=== PATIENT | female | born 1950 | race Caucasian/White ===

== ENCOUNTER 2017-11-30 10:29 | Emergency (ER) | payer OTHER ==
[~2017-11-30] VITALS: Ht 154.9 cm; Wt 60.6 kg
[2017-11-30 10:52] VITALS: TEMP 37; Ht 154.9 cm; Wt 60.6 kg
[2017-11-30] MEDS ORDERED: AMLO-110 PO (11:11)
[2017-11-30] MEDS ORDERED: PRVC/40 PO (11:11)
[2017-11-30] MEDS ORDERED: ONDANSETRON INJ 2 MG/ML 2 ML VIAL IV STA (11:31)
[2017-11-30] MEDS ORDERED: SODIUM CHLORIDE 0.9% 1000ML 1,000 ML IV STA (11:31)
[2017-11-30] MEDS ORDERED: KETOROLAC TROMETHAMINE 30 MG/ML VIAL IV STA (11:31)
--- NOTE | 2017-11-30 11:36 | EMERGENCY ROOM VISIT NOTE ---
History Report prepared by Stevenson: Hung Mireles Under the Supervision of: Dr. Alberto Fofana M.D. First contact with patient: 11:18 Chief Complaint: NAUSEA Stated Complaint: NAUSEA, ACUTE STOMACH PAIN, HEADACHE Nursing Triage Summary: Per pts : Cough and headache since Sunday, then abdomen pain and N/V/D started. Went to [facility] on Sunday to see PCP, was given medication for migraine and nausea. Now migraine resolved, nausea seemed to be under control with medication, but abdominal pain persists. Called PCP again and referred here for further evaluation. Per pt: "I have headache again, I feel dizzy, I feel dehydrated, I feel like a mess, and my abdomen hurts 04/21". History of Present Illness The patient is a 67 year old female who presents to the Emergency Room with complaints of constant epigastric abdominal pain that the onset three days prior to arrival. Her abdominal pain is in localized in the upper epigastric region. The patient state that her symptoms onset three days ago with a cough, vomiting episodes and a migraine. She developed diarrhea on Sunday, and went to [facility] and was given a shot for pain and a nausea medications. The vomiting and diarrhea is resolved at this time. She is still experiencing the abdominal pain and a headache. She denies any chest pain or shortness of breath. She has a history of hypertension and hyperlipidemia. Source of History: patient, spouse/significant other Onset: Three days MACHINERY ERECTOR Position: abdomen (Upper) Timing: constant Associated Symptoms: + headache, + cough, + vomiting Review of Systems See HPI for pertinent positives & negatives. A total of 10 systems reviewed and were otherwise negative. Past Medical & Surgical Medical Problems: (1) HLD (hyperlipidemia) (2) HTN (hypertension) HLD (hyperlipidemia) HTN (hypertension) Old medical records were reviewed. Nurse's notes were reviewed and I agree with. Family History Diabetes mellitus Hypertension Social History Smoking Status: Never Smoker Alcohol Use: none Drug Use: none Marital Status: Housing Status: lives with significant other Occupation Status: unemployed Current/Historical Medications Scheduled Amlodipine (Norvasc), 1 TAB PO DAILY Pravastatin Sod (Pravastatin Sodium), 40 MG PO DAILY Allergies Coded Allergies: No Known Allergies (Unverified , 11/30/17) Physical Exam Vital Signs Date Time Temp Pulse Resp B/P (MAP) Pulse Ox O2 Delivery O2 Flow Rate FiO2 11/30/17 14:53 61 22 148/68 95 11/30/17 12:35 62 18 125/72 97 Room Air 11/30/17 10:52 37.0 83 18 120/75 97 Room Air Physical Exam General: Mildly-ill appearing middle age female in no acute distress. HEENT: Normal cephalic atraumatic. Pupils are equal round and reactive to light. Extraocular movements are intact. Oropharynx is pink with moist mucous membranes. No swelling of the mouth lips or tongue. Neck: Supple with a midline trachea. No meningeal signs or stiffness, no JVD or bruits. No Stridor. Chest: Chest is TTP in anterior chest. Clear to auscultation bilaterally. No wheezes or rhonchi. No increased work of breathing. Heart: regular rate and rhythm. Abdomen: Soft, with TTP in epigastric region, no lower abdominal pain, nondistended without rebound guarding or rigidity. Extremities: No cyanosis clubbing or edema. No calf tenderness or assymetry Spine/Back. Non tender to palpation. No CVA tenderness Skin: Good turgor without rashes. Neurologic exam: Cranial nerves two through 12 are intact. Motor and sensation are intact and symmetrical throughout. Medical Decision & Procedures ER Provider Diagnostic Interpretation: Radiology results as stated below per my review and radiologist interpretation: ABD/PELVIS IV CONTRAST ONLY CT DOSE: 294.35 mGy.cm HISTORY: Pain eval for infection and obst TECHNIQUE: Multiaxial CT images of the abdomen and pelvis were performed following the use of intravenous contrast. A dose lowering technique was utilized adhering to the principles of ALARA. COMPARISON STUDY: None. FINDINGS: Lung bases are clear. Liver spleen and pancreas appear unremarkable. There are several small hypodensities in her nodularity within the liver suggesting small cysts. Gallbladder is negative for distention. There is a small cyst upper pole right kidney. Kidneys otherwise enhance uniformly and are negative for hydronephrosis. The bowel pattern overall is considered nonobstructive. Pancreas is uniform.. Bowel pattern is nonobstructive. Negative appendix although it is seen only in part. IMPRESSION: No acute process of the abdomen or pelvis. Several small hepatic as well as renal cysts. Nonobstructive bowel pattern. The above report was generated using voice recognition software. It may contain grammatical, syntax or spelling errors. Electronically signed by: Ton Elliott M.D. 11/30/2017 1:41 PM Dictated Date/Time: 11/30/2017 1:21 PM CHEST ONE VIEW PORTABLE CLINICAL HISTORY: CHEST PAIN pain COMPARISON STUDY: No previous studies for comparison. FINDINGS: The bones soft tissues and hemidiaphragms are normal. The cardiomediastinal silhouette is normal. The lungs are clear. The pulmonary vasculature is normal. IMPRESSION: Negative chest. The above report was generated using voice recognition software. It may contain grammatical, syntax or spelling errors. Electronically signed by: Ton Elliott M.D. 11/30/2017 12:18 PM Dictated Date/Time: 11/30/2017 12:18 PM Laboratory Results 11/30/17 11:25 Red Blood Count 5.46, Mean Corpuscular Volume 86.4, Mean Corpuscular Hemoglobin 29.5, Mean Corpuscular Hemoglobin Concent 34.1, Mean Platelet Volume 9.9, Neutrophils (%) (Auto) 46.7, Lymphocytes (%) (Auto) 35.0, Monocytes (%) (Auto) 17.7, Eosinophils (%) (Auto) 0.2, Basophils (%) (Auto) 0.2, Neutrophils # (Auto ) 2.73, Lymphocytes # (Auto) 2.04, Monocytes # (Auto) 1.03, Eosinophils # (Auto ) 0.01, Basophils # (Auto) 0.01 11/30/17 11:25 Test 11/30/17 11:25 White Blood Count 5.83 K/uL (4.8-10.8) Red Blood Count 5.46 M/uL (4.2-5.4) Hemoglobin 16.1 g/dL (12.0-16.0) Hematocrit 47.2 % (37-47) Mean Corpuscular Volume 86.4 fL (80-100) Mean Corpuscular Hemoglobin 29.5 pg (25-34) Mean Corpuscular Hemoglobin Concent 34.1 g/dl (32-36) Platelet Count 195 K/uL (130-400) Mean Platelet Volume 9.9 fL (7.4-10.4) Neutrophils (%) (Auto) 46.7 % Lymphocytes (%) (Auto) 35.0 % Monocytes (%) (Auto) 17.7 % Eosinophils (%) (Auto) 0.2 % Basophils (%) (Auto) 0.2 % Neutrophils # (Auto) 2.73 K/uL (1.4-6.5) Lymphocytes # (Auto) 2.04 K/uL (1.2-3.4) Monocytes # (Auto) 1.03 K/uL (0.11-0.59) Eosinophils # (Auto) 0.01 K/uL (0-0.5) Basophils # (Auto) 0.01 K/uL (0-0.2) RDW Standard Deviation 42.5 fL (36.4-46.3) RDW Coefficient of Variation 13.5 % (11.5-14.5) Immature Granulocyte % (Auto) 0.2 % Immature Granulocyte # (Auto) 0.01 K/uL (0.00-0.02) Anion Gap 7.0 mmol/L (3-11) Est Creatinine Clear Calc Drug Dose 50.4 ml/min Estimated GFR () 77.7 Estimated GFR (Non- 67.0 BUN/Creatinine Ratio 15.6 (10-20) Calcium Level 9.2 mg/dl (8.5-10.1) Total Bilirubin 0.3 mg/dl (0.2-1) Direct Bilirubin < 0.1 mg/dl (0-0.2) Aspartate Amino Transf (AST/SGOT) 33 U/L (15-37) Alanine Aminotransferase (ALT/SGPT) 29 U/L (12-78) Alkaline Phosphatase 97 U/L (45-117) Troponin I < 0.015 ng/ml (0-0.045) Total Protein 8.4 gm/dl (6.4-8.2) Albumin 3.9 gm/dl (3.4-5.0) Lipase 140 U/L (73-393) Laboratory studies as stated above per my review. Medications Administered Medications (Trade) Dose Ordered Sig/Ronda Route Start Time Stop Time Status Last Admin Dose Admin Sodium Chloride 1,000 ml @ 999 mls/hr Q1H1M STAT IV 11/30/17 11:31 11/30/17 12:31 DC 11/30/17 11:44 999 MLS/HR Ondansetron HCl (Zofran Inj) 4 mg NOW STAT IV 11/30/17 11:31 11/30/17 11:33 DC 11/30/17 11:44 4 MG Ketorolac Tromethamine (Toradol Inj) 30 mg NOW STAT IV 11/30/17 11:31 11/30/17 11:33 DC 11/30/17 11:44 30 MG Morphine Sulfate (MoRPHine SULFATE INJ) 2 mg NOW STAT IV 11/30/17 12:46 11/30/17 12:48 DC 11/30/17 12:57 2 MG Potassium Chloride (Klor-Con M10) 40 meq NOW STAT PO 11/30/17 14:26 11/30/17 14:28 DC 11/30/17 14:50 40 MEQ ECG Indication: nausea Rate (beats per minute): 65 Rhythm: normal sinus Findings: no acute ischemic change, no ectopy, other (normal intervals) Comparison ECG Date: no prior available Change: Patient's electrocardiogram per my interpretation. ED Course 1122: Past medical records reviewed. The patient was evaluated in room C2, and a complete history and physical examination were performed. 1131: Ordered Toradol 03 mg IV, Zofran 4 mg IV, Sodium Chloride 1000 mL @ 999 mL /hr IV. 1246: Ordered Morphine Sulfate 2 mg IV. 1246: I checked on the patient at this time. She is feeling better. I discussed the option of a CT scan and she is agreeable. 1426: Ordered Potassium Chloride 40 meq PO. 1439: Upon reevaluation, the patient is feeing better. I discussed the results and treatment plan with her. She verbalized agreement of the treatment plan. The patient was discharged home. Medical Decision Differential Diagnosis includes; viral illness, dehydration, infection, cardiac disease, pancreatitis, electrolyte or metabolic abnormality. This patient comes in as described above. She has not felt well for several days . she had a migraine which is now better. She can have nausea and epigastric abdominal pain. She is afebrile. She has no meningeal signs or toxicity. Abdomen is moderately tender most in epigastric area. she's also reproducibly tender and chest. IV access established was hydrated with IV normal saline. She was given IV Zofran and IV Toradol. she is feeling better but still continued pain and was given morphine 2 mg IV. She had multiple blood testing. She had no acute electrolyte or metabolic abnormalities with exception of mildly low potassium. He was given potassium 40 mEq here as well as a recommendation to take increase her potassium at home She has no significant anemia. She has no elevation of her white count. She has nothing to suggest acute coronary syndrome or arrhythmia or pneumonia. A CAT scan of the abdomen was obtained and is unremarkable. She has nothing to suggest acute cardiac disease/event. She is feeling much better and would like to go home. She is going to use her Zofran that she has and for stomach upset. She can also use [id number] Zantac and/or Maalox. She is return if worsening symptoms, any new problems or concerns. She was happy with plan discharge home. She should follow-up with her regular doctor Sunday for recheck or return to ER over the weekend if symptoms worsen Blood Pressure Screening Patient's blood pressure: Normal blood pressure Impression Primary Impression: Vomiting Additional Impressions: Hypokalemia Epigastric abdominal pain Scribe Attestation The scribe's documentation has been prepared under my direction and personally reviewed by me in its entirety. I confirm that the note above accurately reflects all work, treatment, procedures, and medical decision making performed by me. Departure Information Dispostion Home / Self-Care Referrals No Doctor, Assigned (PCP) Forms HOME CARE DOCUMENTATION FORM, IMPORTANT VISIT INFORMATION Patient Instructions My [facility] Additional Instructions Rest. Drink plenty of fluids Increase your dietary potassium by eating a few extra bananas Continue to use your ondansetron if needed for nausea For stomach acid or discomfort may use [id number] Maalox and/or Zantac( ranitidine) Return if: Worsening of symptoms, fever or chills, not tolerating fluids, increasing pain, any new problems or concerns Follow-up with your doctor Sunday for recheck or return to ER over the weekend if symptoms worsen Problem Qualifiers
[2017-11-30 11:49] LABS: BASO % 0.2 %; BASO ABS # 0.01 K/uL (0-0.2); EOS % 0.2 %; EOS ABS # 0.01 K/uL (0-0.5); HEMATOCRIT 47.2 % (37-47); HEMOGLOBIN 16.1 g/dL (12.0-16.0); IG# 0.01 K/uL (0.00-0.02); LYMPH ABS # 2.04 K/uL (1.2-3.4); MEAN CELL VOLUME 86.4 fL (80-100); MEAN CORPUSCULAR HEMOGLOBIN 29.5 pg (25-34); MEAN CORPUSCULAR HGB CONC 34.1 g/dl (32-36); MEAN PLATELET VOLUME 9.9 fL (7.4-10.4); MONO % 17.7 %; MONO ABS # 1.03 K/uL (0.11-0.59); NEUT % 46.7 %; NEUT ABS # 2.73 K/uL (1.4-6.5); PLATELET COUNT 195 K/uL (130-400); RED CELL DISTRIBUTION WIDTH CV 13.5 % (11.5-14.5); RED CELL DISTRIBUTION WIDTH SD 42.5 fL (36.4-46.3); WHITE BLOOD COUNT 5.83 K/uL (4.8-10.8)
[2017-11-30 12:06] LABS: ALBUMIN 3.9 gm/dl (3.4-5.0); ALT/SGPT 29 U/L (12-78); AST/SGOT 33 U/L (15-37); BLOOD UREA NITROGEN 14 mg/dl (7-18); CALCIUM 9.2 mg/dl (8.5-10.1); CARBON DIOXIDE 30 mmol/L (21-32); CREATININE 0.88 mg/dl (0.60-1.20); GLUCOSE 90 mg/dl (70-99); LIPASE 140 U/L (73-393); SODIUM 135 mmol/L (136-145)
[2017-11-30 12:09] LABS: ALKALINE PHOSPHATASE 97 U/L (45-117); TOTAL PROTEIN 8.4 gm/dl (6.4-8.2)
--- NOTE | 2017-11-30 12:19 | DIAGNOSTIC IMAGING REPORT ---
CHEST ONE VIEW PORTABLE CLINICAL HISTORY: CHEST PAIN pain COMPARISON STUDY: No previous studies for comparison. FINDINGS: The bones soft tissues and hemidiaphragms are normal. The cardiomediastinal silhouette is normal. The lungs are clear. The pulmonary vasculature is normal. IMPRESSION: Negative chest. The above report was generated using voice recognition software. It may contain grammatical, syntax or spelling errors. Electronically signed by: Ton Elliott M.D. 11/30/2017 12:18 PM Dictated Date/Time: 11/30/2017 12:18 PM
[2017-11-30] MEDS ORDERED: MoRPHine SULFATE 2 MG/ML CARP IV STA (12:46)
[2017-11-30] MEDS ORDERED: OPTIRAY 320 IV PRN (13:00)
--- NOTE | 2017-11-30 13:42 | DIAGNOSTIC IMAGING REPORT ---
ABD/PELVIS IV CONTRAST ONLY CT DOSE: 294.35 mGy.cm HISTORY: Pain eval for infection and obst TECHNIQUE: Multiaxial CT images of the abdomen and pelvis were performed following the use of intravenous contrast. A dose lowering technique was utilized adhering to the principles of ALARA. COMPARISON STUDY: None. FINDINGS: Lung bases are clear. Liver spleen and pancreas appear unremarkable. There are several small hypodensities in her nodularity within the liver suggesting small cysts. Gallbladder is negative for distention. There is a small cyst upper pole right kidney. Kidneys otherwise enhance uniformly and are negative for hydronephrosis. The bowel pattern overall is considered nonobstructive. Pancreas is uniform.. Bowel pattern is nonobstructive. Negative appendix although it is seen only in part. IMPRESSION: No acute process of the abdomen or pelvis. Several small hepatic as well as renal cysts. Nonobstructive bowel pattern. The above report was generated using voice recognition software. It may contain grammatical, syntax or spelling errors. Electronically signed by: Ton Elliott M.D. 11/30/2017 1:41 PM Dictated Date/Time: 11/30/2017 1:21 PM
[2017-11-30] MEDS ORDERED: POTASSIUM CHLORIDE 10 MEQ TABCR PO STA (14:26)
[2017-11-30 14:53] VITALS: BP 148/68; PULSE 61; O2SAT 95
== END 2017-11-30 14:54 | disposition home or self-care (01) ==
LOC: C.EDB 10:31 → C.EDC 14:54
DX: R11.10 Vomiting, unspecified (principal); E87.6 Hypokalemia; R10.13 Epigastric pain; I10 Essential (primary) hypertension; E78.5 Hyperlipidemia, unspecified; Z83.3 Family history of diabetes mellitus; Z82.49 Family history of ischemic heart disease and other diseases of the circulatory system

== ENCOUNTER → 2018-02-06 | Day surgery (SDC) | payer OTHER ==
[2018-02-01 10:39] VITALS: Ht 157.5 cm; Wt 61.4 kg
[~2018-02-06] VITALS: Ht 157.5 cm; Wt 61.4 kg
[~2018-02-06] MED LIST: 500ML BSS 0.3ML EPI 1:1000PF IRRIG ONE; ACETAMINOPHEN 325 MG TAB PO PRN; AMLO-110 PO; AMVISC PLUS 0.8ML SYRINGE INT OCU ONE; ATROPINE SULFATE 0.1 MG/ML 5ML SYR IV PRN; AcetaZOLAMIDE 250 MG TAB PO SCH; BETAXOLOL HCL 0.25% OP SUSP PER DROP CHARGE OPR SCH; BRIMONIDINE TART 0.2% OP SOLN PER DROP CHARGE ONE; BSS FLUSH ONE; ENDOCOAT 0.85ML SYRINGE INT OCU ONE; EpHEDrine SULFATE INJ 50 MG/ML AMP IV PRN; EpINEphrine INJ 1MG/ML AMP 1 MG/ML AMP ONE; GLUCTAB7 PO; LACTATED RINGER'S 1000ML 500 ML IV SCH; LIDOCAINE 4% OP SOLN DROP CHARGE ONE; LIDOCAINE 4% OP SOLN DROP CHARGE OPR SCH; LIDOCAINE HCL 1% MPF 2 ML VIAL ONE; LORA10CA2 PO; MIDAZOLAM HCL 1 MG/ML 2ML VIAL ONE; MIX: 4ML BSS 1ML EPI 1:1000 PF INSTIL ONE; MOXIFLOXACIN OPH SOLN PER DROP CHARGE ONE; NABU750T PO; OCUCOAT 1 ML SOLN IO ONE; POVIDONE-IODINE OP SOLN 30 ML BTL ONE; PROPARACAINE 0.5% OP SOLN PER DROP CHARGE OPR SCH; PRVC/40 PO; RIZA10TA18 PO; TOBRAMYCIN/DEXAMETHASONE OPH OINT PER APPLN CHARGE ONE
[2018-02-06] MEDS: PHENYLEPHRINE HCL 2.5% OP SOLN PER DROP CHARGE OPR SCH ×2 (07:38→07:43)
[2018-02-06] MEDS: TROPICAMIDE 1% OP SOLN PER DROP CHARGE OPR SCH ×2 (07:39→07:44)
[2018-02-06] MEDS: CYCLOPENTOLATE HCL 1% OP SOLN PER DROP CHARGE OPR SCH ×2 (07:40→07:45)
[2018-02-06] MEDS: MOXIFLOXACIN OPH SOLN PER DROP CHARGE OPR SCH ×2 (07:41→07:46)
--- NOTE | 2018-02-06 07:43 | History & Physical Bridge - SC ---
H&P Re-Evaluation Bridge Note: I have examined the patient, reviewed the History & Physical and in the interval since the performance of the History & Physical I have noted the following changes of clinical significance: No changes noted
--- NOTE | 2018-02-06 08:34 | [facility] Operative Report ---
Operative Report Date of Service Feb 06, 2018. Operative Report 1. PREOPERATIVE DIAGNOSIS: Senile nuclear cataract, right eye. 2. POSTOPERATIVE DIAGNOSIS: Senile nuclear cataract, right eye. 3. PROCEDURE: Phacoemulsification of right cataract with posterior chamber lens implant, type Bausch [employer] Lomb, model MI60L, power +22.0 diopters. ANESTHESIA: Local standby. SURGEON: Dr. Bowman. COMPLICATIONS: None. OPERATING TIME: 10 minutes. 4. OPERATION AND FINDINGS: DESCRIPTION OF PROCEDURE: The right pupil was dilated. The anesthetic was administered using a topical technique. The right eye was prepped and draped. A speculum was placed. A clear corneal incision was formed. The chamber was filled with Amvisc Plus and Endocoat. Epinephrine solution was used. A paracentesis was placed. A capsulorrhexis was performed. The nucleus was hydrodissected. The lens was removed with phacoemulsification. Time was 2.53 seconds. The aspiration unit was used to remove the cortex. The capsule was filled with Amvisc Plus. The lens implant was folded and placed into the capsule. The incision was hydrated. The Amvisc was aspirated. The wound was secure. The chamber was deep. The pupil was round. Brimonidine, TobraDex ointment and Vigamox solution were placed. The speculum was removed. The patient was returned to the Recovery Room in stable condition. I attest to the content of the Intraoperative Record and any orders documented therein. Any exceptions are noted below. The scribe's documentation has been prepared in my presence, under my direction and personally reviewed by me in its entirety. I confirm that the note above accurately reflects all work, treatment, procedures, and medical decision making performed by me. I personally scribed for Tony Bowman M.D. ([email or web address]) on 02/06/18 at 08:34. Electronically submitted by Cecelia Lopez (ITA).
[2018-02-06 08:38] VITALS: TEMP 36.4
--- NOTE | 2018-02-06 08:38 | Discharge Instructions-SurgCtr ---
Discharge Instructions Date of Service Feb 06, 2018. Visit Reason for Visit: Cataract Right Eye Discharge Discharge Diagnosis / Problem: lens implant right eye Discharge Goals Goal(s): Improve function Activity Recommendations Activity Limitations: resume your previous activity Lifting Limitations: no more than 10 pounds Exercise/Sports Limitations: gradually increase as tolerated May Resume Sexual Activity: when tolerated Shower/Bathe: tomorrow Driving or Machine Use: resume 1 day after discharge Anesthesia . Post Anesthesia Instructions: If you have had General Anesthesia or IV Sedation: * Do not drive today. * Resume driving when surgeon permits. * Do not make important decisions or sign legal documents today. * Call surgeon for: 1. Temperature elevations greater than 101 degrees F. 2. Uncontrollable pain. 3. Excessive bleeding. 4. Persistent nausea and vomiting. 5. Medication intolerance (nausea, vomiting or rash). * For nausea and vomiting use only clear liquids such as: tea, soda, bouillon until nausea subsides, then gradually increase diet as tolerated. * If you have any concerns or questions, call your surgeon's office. If physician is unavailable and it is an emergency, call 911 or go to the nearest emergency room. . Instructions / Follow-Up Instructions / Follow-Up ACTIVITY RECOMMENDATIONS: * Light activities. * Mild irritation and blurred vision are common for the first few days. * You may walk outside, read, watch television. * Redness around the white part of the eye is common. MEDICATIONS: Resume previous medications unless instructed otherwise by your surgeon. * Take white Diamox (Acetazolamide) tablet at 1 pm today. Start all eye drops at 1 pm today: * Eye drops (today and tomorrow): Prednisone - one drop in operative eye every 3 hours while awake Ofloxacin - one drop in operative eye every 3 hours while awake SPECIAL CARE INSTRUCTIONS: * Tape plastic shield over eye to sleep at night. Call your doctor at with any concerns or problems. FOLLOW UP VISIT: Follow-up with Dr Bowman at [facility] as scheduled. Diet Recommendations Home Diet: no limitations Procedures Procedures Performed: Right Cataract Phacoemulsification With Intraocular Lens Implant Pending Studies Studies pending at discharge: no Medical Emergencies . Who to Call and When: Medical Emergencies: If at any time you feel your situation is an emergency, please call 911 immediately. . Non-Emergent Contact Non-Emergency issues call your: Computational Geneticist Call Non-Emergent contact if: your pain is not controlled [phone] . . "Provider Documentation" section prepared by Tony Bowman. .
--- NOTE | 2018-02-06 08:49 | Anesthesia Progress Nt - [facility] ---
Anesthesia Post Op Note Date & Time Feb 06, 2018 at 08:49 Vital Signs Pain Intensity: 0 Vital Signs Past 12 Hours Date Time Temp Pulse Resp B/P (MAP) Pulse Ox O2 Delivery O2 Flow Rate FiO2 02/06/18 08:38 36.4 70 16 120/72 (88) 97 Room Air 02/06/18 07:31 36.1 79 20 146/80 (102) 98 Room Air Notes Mental Status: alert / awake / arousable, participated in evaluation Pt Amnestic to Procedure: Yes Nausea / Vomiting: adequately controlled Pain: adequately controlled Airway Patency, RR, SpO2: stable & adequate BP & HR: stable & adequate Hydration State: stable & adequate Anesthetic Complications: no major complications apparent
[2018-02-06 09:04] VITALS: BP 109/62; PULSE 68; O2SAT 97
== END | disposition home or self-care (01) ==
LOC: X.SURG 07:24
PROVIDERS: ATTEND Specialist
DX: H25.11 Age-related nuclear cataract, right eye (principal); G47.33 Obstructive sleep apnea (adult) (pediatric); I10 Essential (primary) hypertension

== ENCOUNTER → 2018-02-20 | Day surgery (SDC) | payer OTHER ==
[2018-02-18 13:37] VITALS: Ht 157.5 cm; Wt 61.4 kg
[~2018-02-20] VITALS: Ht 157.5 cm; Wt 61.4 kg
[~2018-02-20] MED LIST changes: +BETAXOLOL HCL 0.25% OP SUSP PER DROP CHARGE OPL SCH; -BETAXOLOL HCL 0.25% OP SUSP PER DROP CHARGE OPR SCH; +FENTANYL CITRATE INJ 50 MCG/1 ML 2 ML VIAL ONE; +LIDOCAINE 4% OP SOLN DROP CHARGE OPL SCH; -LIDOCAINE 4% OP SOLN DROP CHARGE OPR SCH; +PROPARACAINE 0.5% OP SOLN PER DROP CHARGE OPL SCH; -PROPARACAINE 0.5% OP SOLN PER DROP CHARGE OPR SCH
[2018-02-20] MEDS: PHENYLEPHRINE HCL 2.5% OP SOLN PER DROP CHARGE OPL SCH ×2 (07:21→07:26)
[2018-02-20] MEDS: TROPICAMIDE 1% OP SOLN PER DROP CHARGE OPL SCH ×2 (07:22→07:27)
[2018-02-20] MEDS: CYCLOPENTOLATE HCL 1% OP SOLN PER DROP CHARGE OPL SCH ×2 (07:23→07:28)
[2018-02-20] MEDS: MOXIFLOXACIN OPH SOLN PER DROP CHARGE OPL SCH ×2 (07:24→07:39)
--- NOTE | 2018-02-20 08:41 | [facility] Operative Report ---
Operative Report Date of Service Feb 20, 2018. Operative Report 1. PREOPERATIVE DIAGNOSIS: Senile nuclear cataract, left eye. 2. POSTOPERATIVE DIAGNOSIS: Senile nuclear cataract, left eye. 3. PROCEDURE: Phacoemulsification of left cataract with posterior chamber lens implant, type Bausch [employer] Lomb, model MI60L, power +21.5 diopters. ANESTHESIA: Local standby. SURGEON: Dr. Bowman. COMPLICATIONS: None. OPERATING TIME: 10 minutes. 4. OPERATION AND FINDINGS: DESCRIPTION OF PROCEDURE: The left pupil was dilated. The anesthetic was administered using a topical technique. The left eye was prepped and draped. A speculum was placed. A clear corneal incision was formed. The chamber was filled with Amvisc Plus and Endocoat. Epinephrine solution was used. A paracentesis was placed. A capsulorrhexis was performed. The nucleus was hydrodissected. The lens was removed with phacoemulsification. Time was 2.54 seconds. The aspiration unit was used to remove the cortex. The capsule was filled with Amvisc Plus. The lens implant was folded and placed into the capsule. The incision was hydrated. The Amvisc was aspirated. The wound was secure. The chamber was deep. The pupil was round. Brimonidine, TobraDex ointment and Vigamox solution were placed. The speculum was removed. The patient was returned to the Recovery Room in stable condition. I attest to the content of the Intraoperative Record and any orders documented therein. Any exceptions are noted below. The scribe's documentation has been prepared in my presence, under my direction and personally reviewed by me in its entirety. I confirm that the note above accurately reflects all work, treatment, procedures, and medical decision making performed by me. I personally scribed for Tony Bowman M.D. ([email or web address]) on 02/20/18 at 08:41. Electronically submitted by Cecelia Lopez ([email or web address]).
--- NOTE | 2018-02-20 08:44 | Discharge Instructions-SurgCtr ---
Discharge Instructions Date of Service Feb 20, 2018. Visit Reason for Visit: Cataract Left Eye Discharge Discharge Diagnosis / Problem: lens implant left eye Discharge Goals Goal(s): Improve function Activity Recommendations Activity Limitations: resume your previous activity Lifting Limitations: no more than 10 pounds Exercise/Sports Limitations: gradually increase as tolerated May Resume Sexual Activity: when tolerated Shower/Bathe: tomorrow Driving or Machine Use: resume 1 day after discharge Anesthesia . Post Anesthesia Instructions: If you have had General Anesthesia or IV Sedation: * Do not drive today. * Resume driving when surgeon permits. * Do not make important decisions or sign legal documents today. * Call surgeon for: 1. Temperature elevations greater than 101 degrees F. 2. Uncontrollable pain. 3. Excessive bleeding. 4. Persistent nausea and vomiting. 5. Medication intolerance (nausea, vomiting or rash). * For nausea and vomiting use only clear liquids such as: tea, soda, bouillon until nausea subsides, then gradually increase diet as tolerated. * If you have any concerns or questions, call your surgeon's office. If physician is unavailable and it is an emergency, call 911 or go to the nearest emergency room. . Instructions / Follow-Up Instructions / Follow-Up ACTIVITY RECOMMENDATIONS: * Light activities. * Mild irritation and blurred vision are common for the first few days. * You may walk outside, read, watch television. * Redness around the white part of the eye is common. MEDICATIONS: Resume previous medications unless instructed otherwise by your surgeon. * Take white Diamox (Acetazolamide) tablet at 1 pm today. Start all eye drops at 1 pm today: * Eye drops (today and tomorrow): Prednisone - one drop in operative eye every 3 hours while awake Ofloxacin - one drop in operative eye every 3 hours while awake SPECIAL CARE INSTRUCTIONS: * Tape plastic shield over eye to sleep at night. Call your doctor at with any concerns or problems. FOLLOW UP VISIT: Follow-up with Dr Bowman at [facility] as scheduled. Diet Recommendations Home Diet: no limitations Procedures Procedures Performed: Left Cataract Phacoemulsification With Intraocular Lens Implant Pending Studies Studies pending at discharge: no Medical Emergencies . Who to Call and When: Medical Emergencies: If at any time you feel your situation is an emergency, please call 911 immediately. . Non-Emergent Contact Non-Emergency issues call your: Dispatch Clerk Call Non-Emergent contact if: your pain is not controlled [phone] . . "Provider Documentation" section prepared by Tony Bowman. .
--- NOTE | 2018-02-20 09:07 | Anesthesia Progress Nt - [facility] ---
Anesthesia Post Op Note Date & Time Feb 20, 2018 at 09:07 Vital Signs Pain Intensity: 0 Vital Signs Past 12 Hours Date Time Temp Pulse Resp B/P (MAP) Pulse Ox O2 Delivery O2 Flow Rate FiO2 02/20/18 08:42 36.6 72 16 116/73 (87) 94 Room Air 02/20/18 07:13 36.9 93 18 125/80 (95) 98 Room Air Notes Mental Status: alert / awake / arousable, participated in evaluation Pt Amnestic to Procedure: Yes Nausea / Vomiting: adequately controlled Pain: adequately controlled Airway Patency, RR, SpO2: stable & adequate BP & HR: stable & adequate Hydration State: stable & adequate Anesthetic Complications: no major complications apparent
[2018-02-20 09:22] VITALS: BP 116/70; PULSE 77; O2SAT 95
== END | disposition home or self-care (01) ==
LOC: X.SURG 06:55
PROVIDERS: ATTEND Specialist
DX: H25.12 Age-related nuclear cataract, left eye (principal); G47.33 Obstructive sleep apnea (adult) (pediatric); Z88.7 Allergy status to serum and vaccine; Z98.41 Cataract extraction status, right eye

== ENCOUNTER 2023-05-25 05:15 | Observation (INO) ==
--- NOTE | 2023-05-07 10:24 | PAT Medication Instructions ---
Medication Instructions Date of Service May 07, 2023 Home Medications amlodipine 5 mg tablet 5 mg PO QAM celecoxib 200 mg capsule (Celebrex) 200 mg PO BID PRN docusate sodium 100 mg capsule (Colace) 100 mg PO QAM fluticasone propionate 50 mcg/actuation nasal spray,suspension 1 spray in tranasal BID PRN gabapentin 100 mg capsule 300 mg PO HS hydroxyzine HCl 10 mg tablet 10 mg PO DAILY PRN levocetirizine 5 mg tablet (Xyzal) 5 mg PO QAM omeprazole 20 mg tablet,delayed release 20 mg PO HS oxycodone-acetaminophen 5 mg-325 mg tablet 1 tab PO Q4H PRN rosuvastatin 5 mg tablet 5 mg PO HS Continue as directed hydroxyzine HCl 10 mg tablet 10 mg PO DAILY PRN(if needed) ASK your surgeon for instructions celecoxib 200 mg capsule (Celebrex) 200 mg PO BID PRN DO NOT take the morning of surgery docusate sodium 100 mg capsule (Colace) 100 mg PO QAM levocetirizine 5 mg tablet (Xyzal) 5 mg PO QAM Take morning of surgery With a small sip of water, OTHERWISE NOTHING TO EAT OR DRINK AFTER MIDNIGHT: amlodipine 5 mg tablet 5 mg PO QAM fluticasone propionate 50 mcg/actuation nasal spray,suspension 1 spray intranasal BID PRN(if needed) oxycodone-acetaminophen 5 mg-325 mg tablet 1 tab PO Q4H PRN(if needed) Take evening before surgery fluticasone propionate 50 mcg/actuation nasal spray,suspension 1 spray intranasal BID PRN(if needed) gabapentin 100 mg capsule 300 mg PO HS omeprazole 20 mg tablet,delayed release 20 mg PO HS oxycodone-acetaminophen 5 mg-325 mg tablet 1 tab PO Q4H PRN(if needed) rosuvastatin 5 mg tablet 5 mg PO HS Other Notes If you have any questions please call us at [phone] or [phone] or [phone] or [phone]
--- NOTE | 2023-05-11 13:09 | Anesthesiology Consultation ---
Date of Service May 11, 2023 Assessment & Plan (1) Encounter for pre-operative examination: - awaiting PCP response to optimization form. - claustrophobia. - abdominal discomfort: pt reports resolution of nausea, vomiting and diarrhea. Reports mild residual epigastric abdominal pain after eating since ER evaluation 9 days ago. Denies any current abdominal discomfort or gradual worsening. She was instructed to contact her PCP regarding her symptoms, and that PCP clearance will be needed prior to surgery. Optimization form completed, surgeon's office made aware. - Outpatient joint assessment: Patient is currently scheduled for inpatient pathway. If re-evaluated pending system levels during current pandemic/surgeon requests outpatient pathway, patient is not recommended candidate for outpatient joint program from anesthesia standpoint. Chart Review Chart Review: Pending: Refer to Additional Notes / Consult section and Patient seen in Pre Admission Testing Teaching & Discussion Pre-Anesthesia Teaching/Discussion Notes: Instructed NPO after midnight before surgery, except medications with 15 cc of water. Medication instructions provided according to the PAT guidelines. History Surgery Operation Date: 05/25/23 10:30 Proposed Procedures p Left Total Hip Arthroplasty Anterior - Alberto Varghese, Height/Weight Height: 5 ft 1 in Weight: 59.9 kg Allergies Allergy/AdvReac Type Severity Reaction Status Date / Time insect venom Allergy Severe severe Verified 05/03/23 10:59 localized swollen site. animal dander Allergy Intermediate sneezing, Verified 05/03/23 10:59 cough Medications Home Medications Medication Instructions Recorded Confirmed Last Taken amlodipine 5 mg tablet 5 mg PO QAM 05/03/23 05/03/23 Unknown celecoxib 200 mg capsule (Celebrex) 200 mg PO BID PRN Pain 05/03/23 05/03/23 Unknown docusate sodium 100 mg capsule 100 mg PO QAM 05/03/23 05/03/23 Unknown (Colace) fluticasone propionate 50 1 spray intranasal BID PRN sinus 05/03/23 05/03/23 Unknown mcg/actuation nasal congestion spray,suspension gabapentin 100 mg capsule 300 mg PO HS 05/03/23 05/03/23 Unknown hydroxyzine HCl 10 mg tablet 10 mg PO DAILY PRN Itching 05/03/23 05/03/23 Unknown levocetirizine 5 mg tablet (Xyzal) 5 mg PO QAM 05/03/23 05/03/23 Unknown omeprazole 20 mg tablet,delayed 20 mg PO HS 05/03/23 05/03/23 Unknown release oxycodone-acetaminophen 5 mg-325 1 tab PO Q4H PRN Severe Pain 05/03/23 05/03/23 Unknown mg tablet (Scale Score 7-10) rosuvastatin 5 mg tablet 5 mg PO HS 05/03/23 05/03/23 Unknown Past Medical History Medical History (Updated 05/11/23 @ 13:28 by Maddy Ruano PA-C) Claustrophobia HLD (hyperlipidemia) HTN (hypertension) controlled, stable per pt Hx of basal cell carcinoma left nostril s/p Mohs Kidney stones hx last kidney stone 40 yrs ago Mild heartburn controlled, stable per pt Rectal prolapse hx Seasonal allergies Sleep apnea not currently on treatment Patient denies h/o stroke, seizures, heart attack, heart failure, DM, blood clots or blood transfusions. Exercise / Class Metabolic Activity II 4-5 Yardwork/Stairs/Walk up hill (denies chest discomfort or shortness of breath with 1 FOS) Past Family History Family History Other No family history of adverse response to anesthesia Past Surgical History Surgical History (Updated 05/11/23 @ 13:23 by Maddy Ruano PA-C) History of bilateral tubal ligation History of cataract surgery bilateral History of colonoscopy History of esophagogastroduodenoscopy (EGD) History of rectal surgery repair of rectal prolapse History of repair of rotator cuff right History of tonsillectomy Hx of hammer toe correction right S/P bladder repair bladder prolapse S/P Mohs surgery for basal cell carcinoma Past Anesthesia History No Hx of Anesthesia Complications and Other (sister with agitated behavior post- op) History of PONV No Hx of PONV and Hx of Motion Sickness Social History Smoking Status: Never smoker Do You Dip or Chew Tobacco: No Hx Alcohol Use: No Hx Substance Use: No substance use type: does not use Review of Systems Patient denies chest pain, shortness of breath, dyspnea on exertion, fever, chills, cough, wheezing, or palpitations. Physical Exam Vital Signs Vitals BP 136/85 P 79 TEMP 97.9 SP02 98% on RA RESP 17 Physical Full cervical extension range of motion without pain TMD 3.5 finger breadths Mallampati Score 2 Dentition: several caps/crowns, permanent bridges and implants, denies chipped or loose teeth Lungs: normal respiratory effort. Good air movement, clear throughout to auscultation, no adventitious breath sounds Cardiac: regular rate and rhythm, no murmurs noted Carotid arteries: negative bruit bilat Lab Results Anesthesia Preop Results Results Anesthesia Widget: PT 10.4 Seconds (9.0-12.0) 05/11/23 PTT 29.6 Seconds (21.0-31.0) 05/11/23 INR 0.9 (0.9-1.1) 05/11/23 Blood Type O Negative 05/11/23 Antibody Screen NEGATIVE 05/11/23 Testing Laboratory Results 05/02/2023 WBC: 9.1 H/H: 14/43 PLATELETS: 200 SODIUM: 136 POTASSIUM: 3.5 CHLORIDE: 104 CO2: 28 BUN: 18 CREATININE: 0.7 GLUCOSE: 127 UA: clear, negative COVID: negative Influenza: negative Electrocardiogram Date: 05/11/23 NSR, rate 73 bpm Chest X-Ray Date: 05/11/23 No active disease in the chest Other Testing CT abdomen pelvis 05/02/[address] evidence of acute abdominopelvic pathology to account for the patient's epigastric pain. Specifically no evidence of pancreatitis or cholelithiasis. No CT evidence of cholecystitis. Scattered fluid-filled small bowel loops, nonspecific, which may be seen with diarrheal illness and/or enteritis Multiple scattered hypodense lesions within the left and right hepatic lobes. Th ey are too small to be completely characterized on current exam; statistically they likely represent simple hepatic cysts and/or biliary hamartomas. If there is persistent clinical concern for definitive confirmation, then consider nonemergent outpatient status COVID-19 Risk Screen Screening Information COVID-19 Screen Date: 05/11/23 Exposure 21 Days Family/Household +COVID Last 21 Days: No Exposure 10 Days Any COVID Exposure Last 10 Days: No Symptoms Last 10 Days Experienced COVID Sx Last 10 Days: No + COVID 0-90 Days COVID + in Last 0-90 Days: No
[2023-05-25] MEDS ORDERED: FAMOTIDINE 20 MG TAB PO SCH (06:00)
[2023-05-25] MEDS ORDERED: LR 500ML BOLUS, THEN 15ML/HR IV SCH (06:00)
[2023-05-25] MEDS ORDERED: LR 60ML/HR IV SCH (06:00)
[2023-05-25] MEDS ORDERED: TRANEXAMIC ACID 1,000 MG **IV Pre-op IV SCH (06:00)
[2023-05-25] MEDS ORDERED: TRANEXAMIC ACID 1,000 MG **IV Intra-op IV SCH (06:00)
[2023-05-25] MEDS ORDERED: ACETAMINOPHEN 500 MG TAB PO SCH (06:00)
[2023-05-25] MEDS ORDERED: ORTHO JOINT MIX INFIL SCH ×2 (06:00)
[2023-05-25] MEDS ORDERED: ceFAZolin 2000MG 2,000 MG/15 ML SYR IV SCH (06:00)
[2023-05-25] MEDS ORDERED: GABAPENTIN 300 MG CAP PO SCH ×2 (06:00→21:00)
[2023-05-25] MEDS ORDERED: dexAMETHasone 4 MG TAB PO SCH (06:00)
[2023-05-25] MEDS ORDERED: ROPIVACAINE 0.5% 5 MG/ML 30 ML VIAL ONE (06:15)
--- NOTE | 2023-05-25 06:29 | History & Physical Bridge Note ---
Date of Service May 25, 2023 History & Physical Bridge Note I have examined the patient, reviewed the History & Physical and in the interval since the performance of the History & Physical I have noted the following changes of clinical significance: no changes noted
[2023-05-25] MEDS ORDERED: fentaNYL citrate PF 100 MCG/2 ML VIAL ONE (06:36)
[2023-05-25] MEDS ORDERED: PROPOFOL IV EMULSION 10 MG/ML 20 ML VIAL IV ONE ×2 (06:36→07:55)
[2023-05-25] MEDS ORDERED: LIDOCAINE 2% 2 ML VIAL/AMP(20MG/ML) INFIL ONE (06:36)
[2023-05-25] MEDS ORDERED: MIDAZOLAM HCL 1 MG/ML 2ML VIAL ONE (06:36)
[2023-05-25] MEDS ORDERED: KETOROLAC 30 MG/ML VIAL IV PRN (06:44)
[2023-05-25] MEDS ORDERED: ePHEDrine sulfate 50 MG/ML AMP IV PRN (06:44)
[2023-05-25] MEDS ORDERED: ONDANSETRON INJ 2 MG/ML 2 ML VIAL IV PRN ×2 (06:44→11:09)
[2023-05-25] MEDS ORDERED: ATROPINE SULFATE 0.1 MG/ML 10ML SYR IV PRN (06:44)
[2023-05-25] MEDS ORDERED: HYDROmorphone INJ 1 MG/ML SYRINGE IV PRN (06:44)
[2023-05-25] MEDS ORDERED: ORTHO JOINT ANESTHETIC ONE (06:48)
[2023-05-25] MEDS ORDERED: ONDANSETRON INJ 2 MG/ML 2 ML VIAL ONE (07:10)
--- NOTE | 2023-05-25 08:02 | Operative Report ---
PG Post Operative Report Pre & Post Diagnosis Operation Date: 05/25/23 07:00 Pre-Op Diagnosis: Left Hip Degenerative Joint Disease Post-Op Diagnosis: Left Hip Degenerative Joint Disease I identified the patient and participated in the time-out.: Yes Procedure Operation Date: 05/25/23 07:00 Actual Procedures p Left Total Hip Arthroplasty Anterior(Left) - Alberto Varghese DO Surgeon Alberto Varghese DO [employer] Alberto Montemayor PA-C Estimated Blood Loss 200 Findings Consistent with Post-Op Diagnosis Specimens Left femoral head Description of Procedure Implants used I used a ZimmerBiomet total hip arthroplasty system with a size 2 standard offset Avenir Complete stem, a 48 mm G7 cup with a 25mm screw, an E1 polyethylen e liner, a 32 mm ceramic head with a 0 neck. Alanis arrived at the hospital for the above procedure. She was seen in the preoperative holding area and the operative extremity was identified and signed. She was given a spinal anesthetic, a preoperative antibiotic, and TXA. She was then taken back to the operating room and laid on the table in the supine position. She was given basic sedation. The operative leg was secured to a Puristst leg positioner. The hip was then prepped and draped in sterile fashion. A timeout was done and the patient and the operative extremity was properly identified. An anterior approach was used. Dissection was taken down through the fascia and the tensor muscle belly was retracted laterally and the rectus was retracted medially. The circumflex vessels were identified and ligated. The capsule was then incised and tagged for later repair. The femoral neck was then cut and the femoral head was removed. The acetabulum was exposed. Time was spent doing a complete circumferential labral release. Sequential reaming of the acetabulum up to a size 47 reamer was done. Final reamings were done under fluoroscopy to ensure appropriate version. A Biomet 48 mm G7 cup was then impacted into place. A single 25 mm screw was placed. The E1 polyethylene liner was then snapped into place. Surrounding soft tissues were then injected with 100 cc of an o rthopedic pain control cocktail. The proximal femur was then exposed. Sequential broaching up to a size 2 broach was done. Off that broach a size 32 head with a 0 neck was trialed. The hip was reduced and fluoroscopic images showed anatomic alignment of the implants in acceptable length. The broach was removed. The final size 2 standard offset Avenir Complete stem was then impacted into place. A ceramic 32 mm head with a 0 neck was then impacted onto the stem and the hip was reduced. Final fluoroscopic images showed anatomic alignment of the hip. The capsule was then closed with #1 Vicryl suture. A dilute betadyne lavage was then done for 3 minutes. The joint was then irrigated with normal saline solution. The fascia was closed with #1 PDS suture. Skin was closed with 2-0 Vicryl, dylan, and a Silverlon dressing. She was then transferred to a hospital bed and taken to the post anesthesia care unit in stable condition. She tolerated the procedure well. Alberto Montemayor PA-C, was present for the entire procedure. He was critical for patient positioning, prepping, draping, retraction exposure, wound closure and application of sterile dressing. I attest to the content of the Intraoperative Record and any orders documented therein. Any exceptions are noted below.
--- NOTE | 2023-05-25 08:53 | XRay Report ---
XR hip 1V LT w pelvis HISTORY: 72 years-old Female IN PACU - Post Surgical left hip arthroplasty COMPARISON: 05/25/2023 TECHNIQUE: AP view of the pelvis with crosstable lateral view of the left FINDINGS: Mild osteoarthritis of the right hip. Satisfactory alignment of the left hip total joint arthroplasty . No acute fracture, dislocation or unexpected opaque foreign body. Lateral skin dylan with expecte d postoperative soft tissue swelling and deep tissue air. IMPRESSION: Left hip arthroplasty with expected postoperative changes. ACT 112: Negative or not required by law. The above report was generated using voice recognition software. It may contain grammatical, syntax o r spelling errors. Electronically signed by: Joel Burroughs M.D. 05/25/2023 8:52 AM
--- NOTE | 2023-05-25 08:57 | Anesthesiology Progress Note ---
Date of Service May 25, 2023 Anesthesia Post Procedure Vital Signs Vital Signs: Temp Pulse Pulse Resp BP Pulse Ox O2 Del Method 05/25/23 08:50 36.3 C L 74 14 120/61 98 Room Air 05/25/23 08:40 80 12 107/63 99 Room Air 05/25/23 08:30 85 11 L 116/65 98 Room Air 05/25/23 08:24 36.2 C L 84 15 111/58 L 100 Oxymask 05/25/23 05:47 36.7 C 81 20 164/83 H 99 Room Air O2 Flow Rate 05/25/23 08:50 05/25/23 08:40 05/25/23 08:30 05/25/23 08:24 5 05/25/23 05:47 Transfer of Care Handoff Completed per policy Notes Mental Status: alert / awake / arousable Patient Amnestic to Procedure: Yes Nausea / Vomiting: adequately controlled Pain: adequately controlled Airway Patency, RR, SpO2: stable & adequate BP & HR: stable & adequate Hydration State: stable & adequate Neuraxial Anesthesia: was administered and sensory block is resolving Anesthetic Complications: no major complications apparent
--- NOTE | 2023-05-25 10:53 | Fluoroscopy Report ---
FL hip LT 1V CLINICAL HISTORY: Left hip replacement. COMPARISON STUDY: None. FLUOROSCOPY TIME: 16 seconds FLUOROSCOPY IMAGES: 1 Ka,r: 1.2 mGy FINDINGS: There is a left total arthroplasty. The hardware appears intact. No fracture or dislocation . IMPRESSION: Fluoroscopic assistance as above. ACT 112: Negative or not required by law. Electronically signed by: Atul Galeas M.D. 05/25/2023 10:52 AM
[2023-05-25] MEDS ORDERED: HYDROmorphone INJ 0.5 MG/0.5 ML SYR IV PRN (11:09)
[2023-05-25] MEDS ORDERED: FLUTICASONE PROPIONATE NA SPR 16 GM BTL NAE PRN (11:09)
[2023-05-25] MEDS ORDERED: NALOXONE HCL 0.4 MG/1 ML VIAL/CARP IV PRN (11:09)
[2023-05-25] MEDS ORDERED: bisacodyL 10 MG SUPP PR PRN (11:09)
[2023-05-25] MEDS ORDERED: MAGNESIUM HYDROXIDE SUSP 30 ML UDC PO PRN (11:09)
[2023-05-25] MEDS ORDERED: hydrOXYzine HCl 10 MG TAB PO PRN (11:09)
[2023-05-25] MEDS ORDERED: METOCLOPRAMIDE HCL INJ 5 MG/ML 2 ML VIAL IV PRN (11:09)
[2023-05-25] MEDS: oxyCODONE HCL IR 5 MG TAB (IMMEDIATE RELEASE) PO PRN ×3 (11:43→20:16)
[2023-05-25] MEDS: SODIUM CHLORIDE 0.9% 1000ML 1,000 ML IV SCH ×2 (11:56→20:23)
[2023-05-25] MEDS: KETOROLAC TROMETHAMINE 15 MG/ML VIAL IV SCH ×3 (12:05→23:12)
[2023-05-25] MEDS: ASPIRIN 81 MG ECTAB PO SCH ×2 (12:21→20:19)
[2023-05-25] MEDS: amLODIPine BESYLATE 5 MG TAB PO SCH (12:21)
[2023-05-25] MEDS: MULTIVITAMIN TAB PO SCH (12:22)
[2023-05-25] MEDS: CETIRIZINE HCL 10 MG TABLET PO SCH (12:22)
[2023-05-25] MEDS: DOCUSATE SODIUM 100 MG CAP PO SCH ×2 (12:22→20:21)
[2023-05-25] MEDS: ceFAZolin 2000MG 2,000 MG/15 ML SYR IV SCH ×2 (17:36→23:12)
[2023-05-25] MEDS ORDERED: SENNA 8.6 MG TAB PO SCH (21:00)
[2023-05-25] MEDS ORDERED: PANTOprazole 40 MG TAB PO SCH (21:00)
[2023-05-25] MEDS ORDERED: ROSUVASTATIN CALCIUM 5 MG TAB PO SCH (21:00)
[2023-05-25] MEDS: ACETAMINOPHEN 500 MG TAB PO SCH (23:11)
[2023-05-26] MEDS: KETOROLAC TROMETHAMINE 15 MG/ML VIAL IV SCH (05:53)
[2023-05-26] MEDS: ACETAMINOPHEN 500 MG TAB PO SCH (05:56)
[2023-05-26] MEDS ORDERED: dexAMETHasone 4 MG TAB PO SCH (08:00)
--- NOTE | 2023-05-26 09:07 | Orthopedic Progress Note ---
Date of Service May 26, 2023 Assessment & Plan (1) Status post left hip replacement: Overall she is doing very well. She is not having much pain in the left hip. She will be seen by physical therapy today for ambulation and range of motion exercises. She is on aspirin for DVT prophylaxis. She can be discharged home later today. She will follow-up orthopedics in 2 weeks. Janel Thapa was seen and examined at bedside this morning. Overall she is doing fairly well. She is not having much pain in the left hip. She has been up and ambulating to the bathroom. She has no complaints.. Review of Systems All systems reviewed & are unremarkable except as noted in HPI & below. Physical Exam On physical examination left hip, the dressing is clean and dry. Her leg is out in full extension. She has active dorsiflexion plantarflexion of her left ankle.. Results & Data Results & Data Laboratory Results . Diagnostic Findings Postoperative x-rays of the left hip show the prosthesis to be in anatomic alignment without any evidence of fracture, dislocation, or loosening.. PG Care Time/CCT Total # of Minutes Spent Total Time Spent with Patient: Total time spent is greater than 50% in coordination of care (as documented) at patient's floor/unit and/or counseling patient: Coding Level of Care Code 32816 Post Operative Follow-Up Diagnoses Status post left hip replacement Z96.642
--- NOTE | 2023-05-26 09:08 | Discharge Summary ---
Date of Service May 26, 2023 Principal Diagnosis Same as "Discharge Diagnosis" noted below under Discharge Instructions. Discharge Exam On physical examination left hip, the dressing is clean and dry. Her leg is out in full extension. She has active dorsiflexion plantarflexion of her left ankle.. Discharge Data Procedures Performed Operation Date: 05/25/23 07:00 Actual Procedures p Left Total Hip Arthroplasty Anterior(Left) - Alberto Varghese DO Ordered Studies 05/25/23 07:00 FL hip LT 1V Routine Hospital Course (1) Status post left hip replacement: On May 25, 2023 Alanis arrived at [facility] and underwent a left hip replacement without complication. She had a spinal anesthetic. Postoperatively she was started on aspirin for DVT prophylaxis and transferred to the general orthopedic floors. Her hospital course was uneventful. On postop day #1, her vital signs were stable and her pain was well controlled. She was able to participate well with physical therapy doing ambulation and range of motion exercises. She was then discharged home. She will follow-up with orthopedics in 2 weeks. PG Care Time/CCT Total # of Minutes Spent Total Time Spent with Patient: Total time spent is greater than 50% in coordination of care (as documented) at patient's floor/unit and/or counseling patient: Discharge Plan Discharge Items Patient Disposition: Home - Home Health Services Reason For Visit: Left Hip Degenerative Joint Disease Discharge Diagnosis: Left hip replacement Activity: Per Instructions section Non-emergency contact: Surgeon Call non-emergency contact if: your wound has increased redness and your wound has increased drainage Follow-up/Referrals: Emily Ya DO [Primary Care Provider] - Diet: Regular Addtl Attending Provider Instructions: Activity and Therapy Recommendations: * If you are using [facility] then therapy will be provided at your home until they feel you have accomplished all of your goals. * If you are using [facility] then Physical Therapy will be provided until they feel you are ready to start Outpatient Physical Therapy. * If you are not using home therapy then Outpatient Physical Therapy should start about 3-5 days from your day of surgery. Therapy will last about 6-10 weeks * You were shown a series of exercises in the hospital. Do these exercises three times each day including the exercises you were shown in physical therapy. * Get up and walk several times each day.~ For the first four weeks, try not to stand or walk for more than one hour at a time. If you do stand or walk for more than one hour, you will not hurt anything, but your leg will likely swell.~~ * As you feel comfortable, you may change from the walker or crutches to a cane and~then to independent walking. Medications: * Narcotic You will likely be sent home from the hospital with a prescription for the narcotic pain medication that worked best throughout your stay. * Aspirin Most patients will be required to take Aspirin 81mg twice a day for 6 weeks after surgery. This is obtained [id number] and a prescription is not necessary. * Other medications may be prescribed for specific circumstances. If you have any questions, please call the office at . * Resume previous home medications unless otherwise instructed TEDs/Elastic Stockings: The white elastic stockings help limit swelling and prevent blood clots from forming in your legs. The more you wear them, the more they work. Wear them for six weeks. Dressing Care: Leave the Silverlon dressing in place for 7 days. After 7 days you may remove the dressing. If the incision is not draining then you may leave the dylan open to air. If there is a little bit of drainage or if the dylan are getting stuck on your clothing then cover the incision with a dry dressing. The dylan will be removed at your 2 week follow-up appointment. Showering: You may shower with the Silverlon dressing in place. Do not let the shower spray hit the dressing directly. Pat the Silverlon dressing dry. If the dressing becomes wet underneath, then simply remove the dressing. Keep the incision dry until you are 7 days out from the day of surgery. After 7 days you may remove the Silverlon dressing and shower with the dylan exposed. Let soapy water run over the dylan and pat them dry. Do not scrub or soak the incision. Things To Watch For: * Drainage from the incision site that occurs more than one week after your surgery. * Increased redness at the incision site. * Fever above 102 degrees Fahrenheit. * Unusual chest pain or shortness of breath. * Call [facility] at with any of the above problems Follow-Up Visit: Follow-up with Dr. Varghese's PA (Alberto Montemayor) 2-3 weeks after your day of surgery. He will remove your dylan and answer any questions. If you have any additional questions or concerns, Dr Varghese is usually in the office at the same time and will be available An appointment was probably scheduled when you signed-up for surgery in the office. If you have any questions call Office Instructions: More detailed instructions as well as Frequently Asked Questions were provided in a folder by our office when you signed-up for surgery. Please review these instructions when you get home. If you have any further questions or concerns, please feel free to call the office at [phone] Pending Studies at Discharge: No Stand-Alone Forms: My [facility] PingTank, Smoking Cessation Medications and DC Order Prescriptions: New aspirin 81 mg Tablet,Delayed Release (Dr/Ec) 81 mg PO BID 42 Days Qty: 84 0RF Continued gabapentin 100 mg Capsule 300 mg PO HS fluticasone propionate 50 mcg/actuation [place],Suspension 1 spray INTRANASAL BID PRN (Reason: sinus congestion) Rx Instructions: administer into each nostril levocetirizine [Xyzal] 5 mg Tablet 5 mg PO QAM omeprazole 20 mg Tablet,Delayed Release (Dr/Ec) 20 mg PO HS docusate sodium [Colace] 100 mg Capsule 100 mg PO QAM rosuvastatin 5 mg Tablet 5 mg PO HS celecoxib [Celebrex] 200 mg Capsule 200 mg PO BID PRN (Reason: Pain) amlodipine 5 mg Tablet 5 mg PO QAM hydroxyzine HCl 10 mg Tablet 10 mg PO DAILY PRN (Reason: Itching) oxycodone-acetaminophen 5-325 mg Tablet 1 tab PO Q4H PRN (Reason: Severe Pain (Scale Score 7-10)) Qty: 40 0RF Admission Data Admit Date/Time: 05/25/23 08:34 Attending Provider: Alberto Varghese Admit Provider: Alberto Varghese Primary Care Provider: Emily Ya
[2023-05-26] MEDS: DOCUSATE SODIUM 100 MG CAP PO SCH (09:11)
[2023-05-26] MEDS: amLODIPine BESYLATE 5 MG TAB PO SCH (09:12)
[2023-05-26] MEDS: CETIRIZINE HCL 10 MG TABLET PO SCH (09:12)
[2023-05-26] MEDS: ASPIRIN 81 MG ECTAB PO SCH (09:12)
[2023-05-26] MEDS: MULTIVITAMIN TAB PO SCH (09:12)
== END 2023-05-26 11:15 | disposition home health service (06) ==
LOC: PACUINP 05:15 → ASU 05:15 → 3E 12:41